=== PATIENT | female | born 1955 | race Caucasian/White ===

== ENCOUNTER 2016-03-31 09:46 | Emergency (ER) | payer OTHER ==
[~2016-03-31] VITALS: Ht 162.6 cm; Wt 59.0 kg
[~2016-03-31 09:46] MED LIST: ASCO500C PO; BUSP15TA PO; CALC500T21 PO; CRANCAP11 PO; FLAX100013 PO; FLUO40CA PO; GABA300C3 PO; LACTCAP7 PO; LEVO75TA3 PO; TAB-TAB PO; TRAM50TA PO; VITA400C28 PO; VITA500S3 PO
[2016-03-31 09:50] VITALS: BP 122/69; PULSE 72; RESP 18; TEMP 98.6; O2SAT 97
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
== END 2016-03-31 11:21 | disposition home or self-care (01) ==
LOC: PHEFT 09:46
DX: Z04.1 Encounter for examination and observation following transport accident (principal)
CPT/HCPCS: 99282